=== PATIENT | female | born 1950 | race Caucasian/White ===

== ENCOUNTER 2021-08-25 19:17 | Emergency (ER) | payer OTHER ==
[~2021-08-25] VITALS: Ht 162.6 cm; Wt 93.0 kg
[2021-08-25 19:35] VITALS: BP 137/74
--- NOTE | 2021-08-25 20:00 | NUR ---
PT TAKEN TO XRAY FROM [facility]
--- NOTE | 2021-08-25 20:47 | NUR ---
PT AMBULATED TO ER BED 08 UNASSISTED
--- NOTE | 2021-08-25 20:58 | NUR ---
ASSUMED CARE OF PATIENT AT THIS TIME. PATIENT REPORTED PAIN TO LEFT SHOULDER ONSET TODAY. STATES SHE WAS AT THE MARKET WHEN SHE REACHED UP TO GRAB SOMETHING AND COULD NOT DO IT. HAS PAIN AND LIMITED MOVEMENT.
--- NOTE | 2021-08-25 21:26 | NUR ---
Dr. Kay examining patient.
[2021-08-25] MEDS ORDERED: CYCL-711 PO (21:33)
[2021-08-25] MEDS ORDERED: LID5T TP (21:33)
[2021-08-25] MEDS ORDERED: ACET-10509 PO (21:33)
[2021-08-25] MEDS ORDERED: KETOROLAC 60 MG/2 ML VIAL IM ONE (21:45)
[2021-08-25] MEDS ORDERED: ACETAMINOPHEN EXTRA STRENGTH 500 MG TAB PO ONE (21:45)
[2021-08-25 21:58] VITALS: BP 137/74
--- NOTE | 2021-08-25 21:58 | NUR ---
Patient discharged with v/s stable. Written and verbal after care instructions given and explained. Patient alert, oriented and verbalized understanding of instructions. Ambulatory with steady gait. All questions addressed prior to discharge. ID band removed. Patient advised to follow up with PMD. Rx of TYLENOL, FLEXERIL, LIDODERM PATCH given. Patient educated on indication of medication including possible reaction and side effects. Opportunity to ask questions provided and answered.
== END 2021-08-25 21:58 | disposition home or self-care (01) ==
LOC: MED 19:17
DX: M25.512 Pain in left shoulder (principal); Z79.899 Other long term (current) drug therapy; Z86.73 Personal history of transient ischemic attack (TIA), and cerebral infarction without residual deficits
CPT/HCPCS: 73030; 96372; 99283; J1885